=== PATIENT | male | born 1940 ===

== ENCOUNTER 2018-03-27 11:08 | Inpatient (IN) | payer MEDICARE ==
[2017-09-19 13:23] VITALS: BMI 30.5
--- NOTE | 2018-03-27 14:21 | CP.PCM.HP ---
<MarciaKishore - Last Filed: 03/27/18 14:11> History of Present Illness - History of Present Illness History of Present Illness: PGY2 Medicine H+P for Dr. Paredes Patient is a 77 year old male with a past medical history of hypertension and urinary retention presenting to the hospital for a TURP with Dr. Chandra. Patient seen prior to surgery. Patient is accompanied by his daughter. Patient recently had a left knee revision of his knee replacement approximately two months ago. Patient had a willis placed for the procedure. Upon taking the willis out, he was unable to void. Over the past couple of months he has had the willis removed two more times but was unable to void. He followed up with Dr. Chandra who informed him that his prostate was enlarged. He was scheduled for same day surgery TURP but Dr. Chandra has decided to admit the patient overnight. Patient denies any urinary difficultly prior to having the initial willis placed two months ago. He is felling well without any complaints at this time. Denies fevers, chills, nausea vomiting, diarrhea, constipation, chest pain, shortness of breath, abdominal pain, headaches, numbness or tingling. PMD: Dr. Guzmán Learning Support Specialist: Dr. Boyd PMHx: hypertension and Urinary Retention PSHx: Right Carotid Endarterecomy 1999; Left Knee Replacement 2014; Left Knee revision 2017 Family Hx: denies Social Hx: Previous heavy tobacco use (30+ year 1ppd), quit in 1999. Admits to social ETOH use. Denies illicit drugs. Lives with daughter at home. Currently walk with cane due to recent left knee surgery Allergies: NKDA Present on Admission - Present on Admission Any Indicators Present on Admission: Yes Urinary Catheter: Yes Review of Systems - Review of Systems All systems: reviewed and no additional remarkable complaints except - Constitutional Constitutional: As Per HPI - EENT Eyes: As Per HPI Nose/Mouth/Throat: As Per HPI - Cardiovascular Cardiovascular: As Per HPI - Respiratory Respiratory: As Per HPI - Gastrointestinal Gastrointestinal: As Per HPI - Genitourinary Genitourinary: As Per HPI - Musculoskeletal Musculoskeletal: As Per HPI - Integumentary Integumentary: As Per HPI - Neurological Neurological: As Per HPI - Psychiatric Psychiatric: As Per HPI - Endocrine Endocrine: As Per HPI - Hematologic/Lymphatic Hematologic: As Per HPI Past Patient History - Past Medical History & Family History Past Medical History?: Yes - Past Social History Smoking Status: Never Smoked - CARDIAC Hx Cardiac Disorders: Yes Hx Hypercholesterolemia: Yes Hx Hypertension: Yes - PULMONARY Hx Respiratory Disorders: No - NEUROLOGICAL Hx Neurological Disorder: No - HEENT Hx HEENT Problems: Yes (eyeglasses) - RENAL Hx Chronic Kidney Disease: No - ENDOCRINE/METABOLIC Hx Endocrine Disorders: No - HEMATOLOGICAL/ONCOLOGICAL Hx Blood Disorders: No - INTEGUMENTARY Hx Dermatological Problems: No - MUSCULOSKELETAL/RHEUMATOLOGICAL Hx Musculoskeletal Disorders: Yes Hx Arthritis: Yes Hx Back Pain: Yes Hx Degenerative Joint Disease: Yes (LEFT KNEE) Hx Falls: Yes (fell off ladder 2 wks ago job related) Hx Herniated Disk: Yes (LUMBAR AREA) - GASTROINTESTINAL Hx Gastrointestinal Disorders: No - GENITOURINARY/GYNECOLOGICAL Hx Genitourinary Disorders: Yes Hx Prostate Problems: Yes Other/Comment: HX: URINARY RETENTION - PSYCHIATRIC Hx Psychophysiologic Disorder: No Hx Substance Use: No - SURGICAL HISTORY Hx Surgeries: Yes Hx Joint Replacement: Yes (LEFT TOTAL KNEE REPLACEMENT) Other/Comment: HX:right carotidid endarterectomy(1999). HX: LEFT TOTAL KNEE REVISION 2018 - ANESTHESIA Hx Anesthesia: Yes Hx Anesthesia Reactions: Yes (HTN/DIFFICULTY WAKING UP) Hx Malignant Hyperthermia: No Has any member of the family had a problem w/ anesthesia?: No Meds Allergies/Adverse Reactions: Allergies Allergy/AdvReac Type Severity Reaction Status Date / Time No Known Allergies Allergy Verified 08/07/17 10:05 Physical Exam - Constitutional Appears: Well, Non-toxic, No Acute Distress - Head Exam Head Exam: ATRAUMATIC, NORMOCEPHALIC - Eye Exam Eye Exam: EOMI, Normal appearance - ENT Exam ENT Exam: Mucous Membranes Moist - Neck Exam Additional comments: Scar on right neck from prior carotidendarterectomy - Respiratory Exam Respiratory Exam: Clear to Auscultation Bilateral, NORMAL BREATHING PATTERN. absent: Accessory Muscle Use, Rales, Rhonchi, Wheezes, Respiratory Distress - Cardiovascular Exam Cardiovascular Exam: REGULAR RHYTHM, +S1 - GI/Abdominal Exam GI & Abdominal Exam: Normal Bowel Sounds, Soft. absent: Distended, Firm, Guarding, Rigid, Tenderness - Exam Additional comments: Willis in place with bag attached to right leg - Extremities Exam Extremities exam: Negative for: calf tenderness, pedal edema, tenderness Additional comments: Left knee swelling - scar from previous knee surgery - Neurological Exam Neurological exam: Alert, Oriented x3 - Psychiatric Exam Psychiatric exam: Normal Affect, Normal Mood - Skin Skin Exam: Dry, Warm Results - Vital Signs Recent Vital Signs: Last Vital Signs Temp 97.6 F 03/27/18 11:30 Pulse 60 03/27/18 11:30 Resp 18 03/27/18 11:30 BP 157/70 H 03/27/18 11:30 Pulse Ox 97 03/27/18 11:30 Assessment & Plan - Assessment and Plan (Free Text) Plan: Urinary Retention Urology consulted, Dr. Tiffanie Chandra * Scheduled for TURP with Dr. Chandra this afternoon * follow up for post-op recs Hypertension restart home medications * Carvedilol 25mg PO BID * Hydralazine 50mg PO BID * Crestor 10mg PO din Prophylactic Care Protonix 40mg PO daily - home medication VTE: anticoagulation contraindicated due to post-op risk of bleeding SCDs contraindicated due to left leg edema 2/2 recent knee surgery Case discussed with Dr. Lena Kennedy PGY2 <Naun Paredes - Last Filed: 03/27/18 16:23> Results - Vital Signs Recent Vital Signs: Last Vital Signs Temp 97.6 F 03/27/18 11:30 Pulse 60 03/27/18 11:30 Resp 18 03/27/18 11:30 BP 157/70 H 03/27/18 11:30 Pulse Ox 97 03/27/18 11:30 Attending/Attestation - Attestation I have personally seen and examined this patient.: Yes I have fully participated in the care of the patient.: Yes I have reviewed all pertinent clinical information: Yes Notes (Text): 03/27/18 16:21 Medical attending: Patient was seen and examined by me, reviewed the above note by the resident and agree with the above. The patient was in the [facility] waiting room with family member. Later in the day will have a TURP. Hopefully will help with his BPH. Patient reported that he felt well, denied chest pain, denied shortness of breath, denied abdominal pain. He currently has willis in at this time. I explained to the patient that lenoreley patient will be in hospital overweekend into Friday Naun Paredes
[2018-03-27] MEDS ORDERED: Propofol 10 mg/ml Inj (20 ML) ONE (16:40)
[2018-03-27] MEDS ORDERED: Lidocaine Hydrochloride 5 ML INJ ONE (16:55)
[2018-03-27] MEDS ORDERED: cefTRIAXone 1 gm 1 GM/100 ML BAG IVPB ONE (17:04)
[2018-03-27] MEDS ORDERED: Lidocaine 2% Jelly (Uro-Jet) ONE (17:04)
[2018-03-27] MEDS ORDERED: Gentamicin 80 mg in 0.9% NS 160 MG/200 ML BAG IVPB ONE (17:06)
--- NOTE | 2018-03-27 18:19 | PCM.SURG1 ---
Surgeon's Initial Post Op Note - Surgeon's Notes Surgeon: Tiffanie Chandra Resolution Expert: none Type of Anesthesia: General LMA Pre-Operative Diagnosis: Retention,. BPH Operative Findings: same Post-Operative Diagnosis: same Operation Performed: cysto. TURP Specimen/Specimens Removed: urine. prostate Estimated Blood Loss: EBL {In ML}: 100 Blood Products Given: N/A Post-Op Condition: Good Date of Surgery/Procedure: 03/27/18 Time of Surgery/Procedure: 18:10
[2018-03-27] MEDS ORDERED: HYDROmorphone 0.5 mg/0.5 ml ISec IVP PRN (18:28)
[2018-03-27 20:19] VITALS: RESP 20
[2018-03-27] MEDS: Potassium Ch 20mEq in D5-1/2NS 1,000 ML IV SCH (22:07)
[2018-03-27] MEDS ORDERED: Oxycodone/Acetaminophen 5/325 mg Tab PO PRN (23:50)
[2018-03-28] MEDS: Potassium Ch 20mEq in D5-1/2NS 1,000 ML IV SCH (04:00)
[2018-03-28] MEDS: Pantoprazole 40 mg EC Tab PO SCH (06:00)
[2018-03-28 06:55] LABS: BASO % 0.3 % (0.0-2.0); HEMOGLOBIN 12.5 g/dL (12.0-18.0); LYMPH % 10.8 % (20.0-40.0); MEAN CELL VOLUME 89.5 fL (80.0-94.0); MEAN CORPUSCULAR HGB CONC 33.5 g/dL (33.0-37.0); MEAN PLATELET VOLUME 8.7 fL (7.2-11.7); MONO # 0.2 K/uL (0.0-0.8); MONO % 2.5 % (0.0-10.0); NEUT # 7.6 K/uL (1.8-7.0); NEUT % 86.4 % (50.0-75.0); RBC 4.18 Mil/uL (4.40-5.90); RED CELL DISTRIBUTION WIDTH 14.2 % (11.5-14.5); WHITE BLOOD COUNT 8.8 K/uL (4.8-10.8)
[2018-03-28 07:35] LABS: ALBUMIN 3.5 g/dL (3.5-5.0); ALT/SGPT 20 U/L (21-72); AST/SGOT 21 U/L (17-59); BLOOD UREA NITROGEN 16 mg/dL (9-20); GFR NON-AFRICAN AMERICAN > 60
[2018-03-28] MEDS ORDERED: Pneumococcal 23-Valent Vaccine IM ONE (10:00)
[2018-03-28] MEDS ORDERED: Influenza Vaccine 60 MCG/0.5 ML SYR (3 yr & up) IM ONE (10:00)
--- NOTE | 2018-03-28 19:08 | CP.PCM.PN ---
<Kishore Kennedy - Last Filed: 03/28/18 21:52> Subjective - Date & Time of Evaluation Date of Evaluation: 03/28/18 Time of Evaluation: 09:40 - Subjective Subjective: PGY2 Medicine Note for Dr. Paredes Patient seen and examined this morning at bedside. Patient had CBI discontinued this morning. He is seen sitting up at bedside with willis in place. He reports feeling well without any complaints. He is hopeful to go home soon. Denies fevers, chills, nausea, vomiting, diarrhea, constipation, chest pain or shortness of breath. Objective - Vital Signs/Intake and Output Vital Signs (last 24 hours): Temp Pulse Resp BP Pulse Ox 98.3 F 58 L 20 153/62 H 98 03/28/18 16:00 03/28/18 16:00 03/28/18 16:00 03/28/18 17:41 03/28/18 16:00 Intake and Output: 03/28/18 03/29/18 18:59 06:59 Intake Total 3000 Output Total 1351 Balance 1649 - Medications Medications: Current Medications Amlodipine Besylate (Norvasc) 5 mg PO DAILY [facility] Carvedilol (Coreg) 25 mg PO BID [facility] Last Admin: 03/28/18 17:41 Dose: 25 mg Docusate Sodium (Colace) 100 mg PO TID [facility] Last Admin: 03/28/18 17:42 Dose: 100 mg Enalapril Maleate (Vasotec) 20 mg PO DAILY [facility] Hydralazine HCl (Apresoline) 50 mg PO BID [facility] Last Admin: 03/28/18 17:41 Dose: 50 mg Ceftriaxone Sodium 1 gm/ (Sodium Chloride) 100 mls @ 100 mls/hr IVPB DAILY [facility]; Protocol Last Admin: 03/28/18 10:57 Dose: 100 mls/hr Oxycodone/Acetaminophen (Percocet 5/325 Mg Tab) 1 tab PO Q4H PRN PRN Reason: Pain, moderate (4-7) Stop: 03/30/18 23:51 Last Admin: 03/28/18 00:41 Dose: 1 tab Pantoprazole Sodium (Protonix Ec Tab) 40 mg PO 0600 [facility] Last Admin: 03/28/18 06:00 Dose: 40 mg Rosuvastatin Calcium (Crestor) 10 mg PO HS [facility] Last Admin: 03/27/18 22:17 Dose: Not Given - Labs Labs: 03/28/18 06:41 03/28/18 06:41 - Additional Findings Additional findings: - Constitutional Appears: Well, Non-toxic, No Acute Distress - Head Exam Head Exam: ATRAUMATIC, NORMOCEPHALIC - Eye Exam Eye Exam: EOMI, Normal appearance - ENT Exam ENT Exam: Mucous Membranes Moist - Neck Exam Additional comments: Scar on right neck from prior carotidendarterectomy - Respiratory Exam Respiratory Exam: Clear to Auscultation Bilateral, NORMAL BREATHING PATTERN. absent: Accessory Muscle Use, Rales, Rhonchi, Wheezes, Respiratory Distress - Cardiovascular Exam Cardiovascular Exam: REGULAR RHYTHM, +S1 - GI/Abdominal Exam GI & Abdominal Exam: Normal Bowel Sounds, Soft. absent: Distended, Firm, Guarding, Rigid, Tenderness - Exam Additional comments: Willis in place with bag attached to right leg, urine is pinkish/red, no clots s een. - Extremities Exam Extremities exam: Negative for: calf tenderness, pedal edema, tenderness Additional comments: Left knee swelling - scar from previous knee surgery - Neurological Exam Neurological exam: Alert, Oriented x3 - Psychiatric Exam Psychiatric exam: Normal Affect, Normal Mood - Skin Skin Exam: Dry, Warm Assessment and Plan - Assessment and Plan (Free Text) Plan: Urinary Retention Urology consulted, Dr. Tiffanie Chandra * Scheduled for TURP with Dr. Chandra this afternoon * follow up for post-op recs Hypertension restart home medications * Carvedilol 25mg PO BID * Hydralazine 50mg PO BID * Crestor 10mg PO din Prophylactic Care Protonix 40mg PO daily - home medication VTE: anticoagulation contraindicated due to post-op risk of bleeding SCDs contraindicated due to left leg edema 2/2 recent knee surgery DISPO: Patient is feeling well without any complaints. Will follow up with Dr. Chandra for further recommendations and discharge expectations. Case discussed with Dr. Lena Novak Marcia PGY2 <Naun Paredes - Last Filed: 03/29/18 07:53> Objective - Vital Signs/Intake and Output Vital Signs (last 24 hours): Temp Pulse Resp BP Pulse Ox 98.3 F 81 20 130/70 95 03/29/18 00:00 03/29/18 00:00 03/29/18 00:00 03/29/18 00:00 03/29/18 00:00 Intake and Output: 03/29/18 03/29/18 06:59 18:59 Intake Total 1100 240 Output Total 900 1650 Balance 200 -1410 - Medications Medications: Current Medications Amlodipine Besylate (Norvasc) 5 mg PO DAILY [facility] Carvedilol (Coreg) 25 mg PO BID [facility] Last Admin: 03/28/18 17:41 Dose: 25 mg Docusate Sodium (Colace) 100 mg PO TID [facility] Last Admin: 03/28/18 17:42 Dose: 100 mg Enalapril Maleate (Vasotec) 20 mg PO DAILY [facility] Hydralazine HCl (Apresoline) 50 mg PO BID [facility] Last Admin: 03/28/18 17:41 Dose: 50 mg Ceftriaxone Sodium 1 gm/ (Sodium Chloride) 100 mls @ 100 mls/hr IVPB DAILY [facility]; Protocol Last Admin: 03/28/18 10:57 Dose: 100 mls/hr Oxycodone/Acetaminophen (Percocet 5/325 Mg Tab) 1 tab PO Q4H PRN PRN Reason: Pain, moderate (4-7) Stop: 03/30/18 23:51 Last Admin: 03/28/18 00:41 Dose: 1 tab Pantoprazole Sodium (Protonix Ec Tab) 40 mg PO 0600 [facility] Last Admin: 03/29/18 05:29 Dose: 40 mg Rosuvastatin Calcium (Crestor) 10 mg PO HS [facility] Last Admin: 03/28/18 20:59 Dose: 10 mg - Labs Labs: 03/29/18 07:24 03/28/18 06:41 Attending/Attestation - Attestation I have personally seen and examined this patient.: Yes I have fully participated in the care of the patient.: Yes I have reviewed all pertinent clinical information, including history, physical exam and plan: Yes Notes (Text): 03/29/18 07:51 Medical attending: Patient was doing well when we saw him on rounds. Reviewed the above note by the medical staff manager and agree Patient's family member at bedside and he did not have any acute concerns overnight Patient was tolerating diet and trying to walk around. Will restart one of the patient's blood pressure medications Naun Paredes
[2018-03-29] MEDS: Pantoprazole 40 mg EC Tab PO SCH (05:29)
[2018-03-29 07:38] LABS: BASO % 0.2 % (0.0-2.0); EOS # 0.1 K/uL (0.0-0.7); EOS % 0.9 % (0.0-4.0); HEMOGLOBIN 11.4 g/dL (12.0-18.0); LYMPH # 1.9 K/uL (1.0-4.3); LYMPH % 18.8 % (20.0-40.0); MEAN CELL VOLUME 89.3 fL (80.0-94.0); MEAN CORPUSCULAR HEMOGLOBIN 29.8 pg (27.0-31.0); MEAN CORPUSCULAR HGB CONC 33.4 g/dL (33.0-37.0); MEAN PLATELET VOLUME 8.9 fL (7.2-11.7); MONO % 9.7 % (0.0-10.0); NEUT % 70.4 % (50.0-75.0); NRBC % 0.1 % (0.0-2.0); RBC 3.81 Mil/uL (4.40-5.90); RED CELL DISTRIBUTION WIDTH 14.4 % (11.5-14.5)
[2018-03-29 08:13] LABS: ALB/GLOB RATIO 1.1 (1.0-2.1); ALBUMIN 3.4 g/dL (3.5-5.0); ALT/SGPT 21 U/L (21-72); AST/SGOT 19 U/L (17-59); BLOOD UREA NITROGEN 17 mg/dL (9-20); CALCIUM 8.6 mg/dl (8.6-10.4); GFR NON-AFRICAN AMERICAN > 60
[2018-03-29] MEDS ORDERED: Magnesium Hydroxide Susp 30 ml UD PO ONE (08:17)
--- NOTE | 2018-03-29 14:00 | CP.PCM.DIS ---
Provider - Provider Date of Admission: 03/27/18 14:12 Attending physician: Naun Paredes DO Consults: Urology - Prateek Time Spent in preparation of Discharge (in minutes): 35 Hospital Course - Lab Results Lab Results: Most Recent Lab Values WBC 10.0 K/uL (4.8-10.8) 03/29/18 07:24 RBC 3.81 Mil/uL (4.40-5.90) L 03/29/18 07:24 Hgb 11.4 g/dL (12.0-18.0) L 03/29/18 07:24 Hct 34.0 % (35.0-51.0) L 03/29/18 07:24 MCV 89.3 fL (80.0-94.0) 03/29/18 07:24 MCH 29.8 pg (27.0-31.0) 03/29/18 07:24 MCHC 33.4 g/dL (33.0-37.0) 03/29/18 07:24 RDW 14.4 % (11.5-14.5) 03/29/18 07:24 Plt Count 201 K/uL (130-400) 03/29/18 07:24 MPV 8.9 fL (7.2-11.7) 03/29/18 07:24 Neut % (Auto) 70.4 % (50.0-75.0) 03/29/18 07:24 Lymph % (Auto) 18.8 % (20.0-40.0) L 03/29/18 07:24 Beadle % (Auto) 9.7 % (0.0-10.0) 03/29/18 07:24 Eos % (Auto) 0.9 % (0.0-4.0) 03/29/18 07:24 Baso % (Auto) 0.2 % (0.0-2.0) 03/29/18 07:24 Neut # (Auto) 7.0 K/uL (1.8-7.0) 03/29/18 07:24 Lymph # (Auto) 1.9 K/uL (1.0-4.3) 03/29/18 07:24 Beadle # (Auto) 1.0 K/uL (0.0-0.8) H 03/29/18 07:24 Eos # (Auto) 0.1 K/uL (0.0-0.7) 03/29/18 07:24 Baso # (Auto) 0.0 K/uL (0.0-0.2) 03/29/18 07:24 Sodium 140 mmol/L (132-148) 03/29/18 07:24 Potassium 4.1 mmol/L (3.6-5.2) 03/29/18 07:24 Chloride 103 mmol/L (98-107) 03/29/18 07:24 Carbon Dioxide 27 mmol/L (22-30) 03/29/18 07:24 Anion Gap 15 (10-20) 03/29/18 07:24 BUN 17 mg/dL (9-20) 03/29/18 07:24 Creatinine 1.1 mg/dL (0.8-1.5) 03/29/18 07:24 Est GFR ( Amer) > 60 03/29/18 07:24 Est GFR (Non-Af Amer) > 60 03/29/18 07:24 POC Glucose (mg/dL) 88 mg/dL (65-110) 03/29/18 10:56 Random Glucose 115 mg/dL (75-110) H 03/29/18 07:24 Calcium 8.6 mg/dl (8.6-10.4) 03/29/18 07:24 Total Bilirubin 0.2 mg/dL (0.2-1.3) 03/29/18 07:24 AST 19 U/L (17-59) 03/29/18 07:24 ALT 21 U/L (21-72) 03/29/18 07:24 Alkaline Phosphatase 79 U/L (38-126) 03/29/18 07:24 Total Protein 6.5 g/dL (6.3-8.3) 03/29/18 07:24 Albumin 3.4 g/dL (3.5-5.0) L 03/29/18 07:24 Globulin 3.2 gm/dL (2.2-3.9) 03/29/18 07:24 Albumin/Globulin Ratio 1.1 (1.0-2.1) 03/29/18 07:24 Discharge Exam - Head Exam Head Exam: ATRAUMATIC, NORMOCEPHALIC Discharge Plan - Discharge Medications Prescriptions: Levofloxacin [Levaquin] 500 mg PO DAILY #10 tablet - Follow Up Plan Condition: GOOD Disposition: HOME/ ROUTINE Additional Instructions: Patient is to be discharged home per Dr. Paredes. Patient is to follow up with his primary care physician within 2-3 days. If patient does not have a primary care physician, he can follow up in the [facility] located in the [facility]. Please call and schedule an appointment. Patient is to follow up with Dr. Chandra in his office this , April 02, 2018. Please call and ask for a time for an appointment. Patient is to keep Wilburn Catheter in place until visit. Patient has prescriptions for Percocet (for pain), Colace (for constipation) and Levaquin (antibiotic, please take entire course for 10 days). Please take all other medications as previously pre-scribed by your primary care physician. If patient experiences any new or worsening symptoms, please call Dr. Chandra or go directly to the nearest emergency department. Referrals: [facility] at [facility] [Outside] Blanche Chandra MD [Staff Provider] -
[2018-03-29 16:42] VITALS: BP 134/71; PULSE 58; TEMP 98.5; O2SAT 96
--- NOTE | 2018-04-01 06:13 | OP ---
PROCEDURE DATE: 03/27/2018 PREOPERATIVE DIAGNOSIS: Urinary retention. POSTOPERATIVE DIAGNOSIS: Urinary retention. PROCEDURE: Cystoscopy. Transurethral resection of the prostate. SURGEON: Blanche Chandra MD. PROCEDURE: The patient received perioperative antibiotics. The patient was placed in a lithotomy position. Genitalia prepped and draped sterilely. Anesthesia was provided by the anesthesiologist. A 26-[place]e continuous flow resectoscope sheath was introduced under direct vision using the visual obturator. The urethra, prostate and bladder were inspected. Findings; there was no stricture of the anterior urethra. There was evidence of trilobar prostatic hypertrophy. There was middle lobe hypertrophy as well with intravesical lobe. There was moderate to marked bladder trabeculation. There was no bladder tumor. There was no bladder stone. Resection of the prostate was performed starting at the middle lobe. Following middle lobe resection, the ureteral orifices were identified bilaterally and preserved and spared through the remainder of the procedure. After middle lobe resection, the direction was turned toward the lateral lobes. The anterior roof tissue was resected. Subsequently, the right lateral lobe and thereafter the left lateral lobe were resected. Finally, the floor and apical prostatic tissue were resected, with the surgeon's index finger within the TUR Drape within the rectum. The prostatic chips were removed using the [employer] scientific evacuator. Hemostasis was achieved after each section of the resection. The bladder was reinspected. There were no residual prostatic chips. Hemostasis was complete. The veru was intact. The ureteral orifices were intact. Resectoscope and sheath removed. Wilburn catheter was inserted. Bladder drainage was clear. The patient tolerated the procedure without complication. Blanche Chandra MD
== END 2018-03-29 17:35 | disposition home or self-care (01) | DRG 667 ==
LOC: C.SDS 11:08 → C.9S 14:12 → C.3T 19:42
PROVIDERS: ADMIT Hospitalist; ATTEND Hospitalist
PROC: 0VT08ZZ Resection of Prostate, Via Natural or Artificial Opening Endoscopic (ICD-10-PCS; principal; 2018-03-27 14:45)
DX: R33.9 Retention of urine, unspecified (principal); Z87.891 Personal history of nicotine dependence; R33.8 Other retention of urine; Z96.652 Presence of left artificial knee joint; I10 Essential (primary) hypertension; E78.00 Pure hypercholesterolemia, unspecified; N40.1 Benign prostatic hyperplasia with lower urinary tract symptoms; N32.89 Other specified disorders of bladder